=== PATIENT | female | born 1980 | race Caucasian/White ===

== ENCOUNTER 2021-07-28 12:10 | Emergency (ER) | payer OTHER ==
[2021-07-28 13:50] LABS: BASOPHIL 0.6 % (0-2); EOSINOPHIL 2.8 % (0-5); HCT 45.7 % (37.0-47.0); HGB 14.4 g/dl (12.5-16.0); LYMPHOCYTE 23.4 % (15-48); MCH 26.6 pg (25.0-31.0); MCHC 31.5 g/dL (32.0-36.0); MCV 84.3 fL (78.0-100.0); MONOCYTE 5.5 % (0-12); MPV 9.5 fL (6.0-9.5); NEUTROPHIL 67.2 % (41-80); NRBC 0; PLT 472 K/uL (150-400); RBC 5.42 M/uL (4.20-5.40); WBC 9.6 K/uL (4.0-10.5)
[2021-07-28 13:59] LABS: ALBUMIN 3.6 g/dL (3.4-5.0); BILIRUBIN - TOTAL 0.3 mg/dL (0.2-1.0); BUN/CREAT RATIO (CALC) 14.3 RATIO; CREATININE 0.84 mg/dL (0.51-0.95); GLOBULIN (CALCULATION) 4.5 g/dL; POTASSIUM 4.3 mmol/L (3.5-5.1); TOTAL PROTEIN 8.1 g/dL (6.4-8.2)
[2021-07-28 14:13] LABS: BILIRUBIN 1+ mg/dL (NEGATIVE); BLOOD 3+ Ery/uL (NEGATIVE); COLOR YELLOW (YELLOW); GLUCOSE (U) TRACE mg/dL (NORMAL); LEUKOCYTES TRACE Leu/uL (NEGATIVE); NITRITE POSITIVE (NEGATIVE); PROTEIN 3+ mg/dL (NEGATIVE); SPECIFIC GRAVITY >=1.030 (1.001-1.030)
[2021-07-28 14:21] LABS: CLARITY CLOUDY (CLEAR)
[2021-07-28 14:22] LABS: BACTERIA 1+; URINARY RBC 20-50
[2021-07-28] MEDS ORDERED: PYRIDIUM100 MG PO (15:30)
[2021-07-28] MEDS ORDERED: BACTRIM DS TAB1 EACH PO (15:30)
== END 2021-07-28 15:49 | disposition home or self-care (01) ==
LOC: FER 12:10
PROVIDERS: Nurse Practitioner Family
DX: N39.0 Urinary tract infection, site not specified (principal); Z88.6 Allergy status to analgesic agent; Z88.8 Allergy status to other drugs, medicaments and biological substances; Z91.09 Other allergy status, other than to drugs and biological substances
CPT/HCPCS: 36415; 80053; 81001; 85025; 87076; 87088; 87186; J1885; J2405; J7030